=== PATIENT | female | born 1940 | race American Indian/Alaskan Native ===

== ENCOUNTER 2021-01-29 13:24 | Outpatient (CLI) | payer MEDICARE ==
--- NOTE | 2021-01-29 14:33 | XRay Report ---
RIGHT HIP HISTORY: Chronic hip pain. COMPARISON: None. TECHNIQUE: 2 views of the right hip obtained. FINDINGS: Bones: No fracture or dislocation. Joint spaces: Joint space narrowing is most pronounced medially with suspected subchondral cyst forma tion within the femoral head. Soft tissues: No significant abnormality. Additional findings: None. IMPRESSION: Right hip without evidence of acute osseous injury. Moderate degenerative change as evidenced by right hip joint space narrowing with suspected subchondr al cyst formation. Signer Name: Russ Valdivia MD Signed: 01/29/2021 2:29 PM Workstation Name: [id number]
== END 2021-01-29 13:25 | disposition home or self-care (01) ==
LOC: SPVIMAG 13:24
PROVIDERS: ATTEND Internal Medicine
DX: M16.11 Unilateral primary osteoarthritis, right hip (principal); M85.40 Solitary bone cyst, unspecified site

== ENCOUNTER 2021-07-02 13:24 | Outpatient (CLI) | payer MEDICARE ==
--- NOTE | 2021-07-02 15:26 | XRay Report ---
CHEST PA AND LATERAL VIEWS INDICATION: ASTHMATIC BRONCHITIS, MILD INTERMITTENT, UNCOMPLICATED J45.20. COMPARISON: None. FINDINGS: Support devices: None. Heart: Within normal limits. Lungs/Pleura: Lungs are hyperexpanded but clear. No pleural abnormality. IMPRESSION: 1. No acute findings. Signer Name: Luke Camejo MD Signed: 07/02/2021 3:21 PM Workstation Name: [employer]
== END 2021-07-02 13:25 | disposition home or self-care (01) ==
LOC: SPVIMAG 13:24
PROVIDERS: ATTEND Internal Medicine
DX: J45.20 Mild intermittent asthma, uncomplicated (principal)
CPT/HCPCS: 71046